=== PATIENT | male | born 1960 | race Caucasian/White ===

== ENCOUNTER 2023-02-21 18:06 | Emergency (ER) | payer OTHER, SELFPAY ==
--- NOTE | ~2023-02-21 | CT_ITS ---
EXAMINATION: CT ABDOMEN AND PELVIS WITHOUT CONTRAST CLINICAL INFORMATION: Abdominal pain and diarrhea COMPARISON: None available. TECHNIQUE: Multidetector volumetric imaging was performed from the superior aspect of the liver through the pubic symphysis. Sagittal and coronal reformatted images were obtained on the technologist's workstation. This CT examination was performed using dose optimization techniques as appropriate, variously including the following: *Automated exposure control *Adjustment of mA and/or kV according to patient size (this includes techniques or standardized protocols for targeted exams where dose is matched to indication/reason for exam; i.e. extremities or head) *Use of iterative reconstruction technique DLP: 611 mGy-cm FINDINGS: LUNG BASES: The lung bases are clear. The heart size is normal. LIVER, GALLBLADDER, AND BILIARY TREE: The liver is normal in size, shape, and attenuation. No focal hepatic lesion or biliary ductal dilatation is present. The gallbladder has been surgically removed. PANCREAS: Unremarkable. SPLEEN: Several fine calcifications are seen likely granulomas. The spleen is otherwise unremarkable. ADRENAL GLANDS: Unremarkable. KIDNEYS AND URETERS: The kidneys are normal in size, shape, and attenuation. No hydronephrosis, hydroureter, or calculi seen. Mild bilateral perinephric stranding. BLADDER: Mild bladder wall thickening is seen however the bladder is undistended. GASTROINTESTINAL TRACT: There is moderate scattered stool seen throughout the colon without significant distention. The small bowel loops are normal caliber. Appendix is normal. No free air or inflammatory process seen. ABDOMINAL WALL: No significant hernia is appreciated. LYMPH NODES: There are small shotty lymph nodes seen in the retroperitoneum. VASCULAR: The distal abdominal aorta is mildly dilated measuring 2.5 x 2.5 cm. PELVIC VISCERA: No free fluid or free air seen. The prostate gland is normal size with central gland calcification. OSSEOUS STRUCTURES: There is vacuum disc phenomena lower dorsal spine and L3-for L4-L5 disc level. No aggressive lytic or sclerotic process seen. CT/CT abdomen pelvis wo IV con IMPRESSION: No acute intra-abdominal process seen. Moderate constipation without obstruction. Normal appendix. Mild dilated distal abdominal aorta. No radiopaque urolith or hydroureteronephrosis. Fleischner guidelines were followed.
[2023-02-21 18:37] VITALS: BP 148/73; PULSE 110; RESP 18; TEMP 36.7; O2SAT 98; BMI 35.3
--- NOTE | 2023-02-21 18:38 | ED_ITS ---
HPI - Abdominal Pain General Chief Complaint: Abdominal Pain <BG Russell - Last Filed: 02/21/23 18:42> Stated Complaint: abd pain <BG Russell - Last Filed: 02/21/23 18:42> Time Seen by Provider: 02/21/23 21:45 <BG Russell - Last Filed: 02/21/23 18:42> Source: patient <Mily Hernandez MD - Last Filed: 02/21/23 22:29> Mode of arrival: ambulatory <Mily Hernandez MD - Last Filed: 02/21/23 22:29> Limitations: no limitations <Mily Hernandez MD - Last Filed: 02/21/23 22:29> History of Present Illness HPI narrative: Patient comes to the emergency room complaining of bilateral lower quadrant pain for 2 days. Patient reports diarrhea UTI symptoms. No fever chills. <Mily Hernandez MD - Last Filed: 02/21/23 22:29> Related Data Home Medications: Previous Rx's Medication Instructions Recorded hyoscyamine sulfate 0.125 mg tablet 0.125 mg PO QID #14 tabs 02/21/23 tramadol 50 mg tablet 50 mg PO BID PRN pain #4 tabs 02/21/23 <BG Russell - Last Filed: 02/21/23 18:42> Allergies/Adverse Reactions: Allergies Allergy/AdvReac Type Severity Reaction Status Date / Time No Known Allergies Allergy Verified 02/21/23 18:41 <BG Russell - Last Filed: 02/21/23 18:42> Review of Systems Review of Systems Constitutional : No Weight loss, No Fever, No Chills, No Night Sweats, No Fatigue, No Malaise ENT/Mouth : No Hearing loss, No Ear Pain, No Nasal Congestion, No Sinus Pain, No Hoarseness, No sore throat, No Rhinorrhea, No Swallowing Difficulty Eyes: No Eye Pain, No Swelling, No Redness, No Foreign Body, No Discharge, No Vision Changes Cardiovascular : No Chest Pain, No SOB, No Dyspnea on Exertion, No Orthopnea, No Edema, No Palpitations Respiratory : No Cough, No Sputum, No Wheezing, No Smoke Exposure, No Dyspnea Gastrointestinal : Complaining of bilateral lower quadrant pain Genitourinary : no irregular bleeding, No Dysuria, No Urinary Frequency, No Hematuria, No Urinary Incontinence, No Urgency, No Flank Pain, No Urinary Flow Changes, No Hesitancy Musculoskeletal : No joint pain, No Myalgias, No Joint Swelling Skin : No Skin Lesions, No rash Neuro : No Weakness, No Numbness, No Paresthesias, No Loss of Consciousness, No Dizziness, No Headache Psych : No Anxiety/Panic, No Depression, No SI/HI/AH/VH, No Social Issues, Heme/Lymph: No Bruising, No Bleeding,No Lymphadenopathy Endocrine : No Polyuria, No Polydipsia, No Temperature Intolerance <Mily Hernandez MD - Last Filed: 02/21/23 22:29> FOR[facility]LY [facility], [facility] Social History Social History: Social History Advance Directives: No Advance Directives Information Provided: No <BG Russell - Last Filed: 02/21/23 18:42> Physical Exam ED Vital Signs: Vital Signs - 24 hr 02/21/23 18:37 02/21/23 20:56 Temperature 98.0 F 97.0 F Pulse Rate 110 H 97 Respiratory Rate 18 18 Blood Pressure 148/73 H 134/81 Pulse Oximetry 98 94 Oxygen Delivery Method Room Air Room Air BMI result Body Mass Index 35.3 <BG Russell - Last Filed: 02/21/23 18:42> Vital Signs - 24 hr 02/21/23 18:37 02/21/23 20:56 Temperature 98.0 F 97.0 F Pulse Rate 110 H 97 Respiratory Rate 18 18 Blood Pressure 148/73 H 134/81 Pulse Oximetry 98 94 Oxygen Delivery Method Room Air Room Air BMI result Body Mass Index 35.3 <Mily Hernandez MD - Last Filed: 02/21/23 22:29> Const Other: Appearance: Alert. Oriented X3. No acute distress. Well-appearing Eyes: Pupils equal, round and reactive to light. ENT: Pharynx normal. Neck: Normal inspection. Neck supple. No lymph nodes noted. No crepitus CVS: Normal heart rate and rhythm. Pulses normal. Normal S1 and S2 Respiratory: No respiratory distress. Breath sounds normal. No Wheezing. No rales Abdomen: Soft and nontender. No rigidity. No distention. No guarding, no rebound Skin: Skin warm and dry. Normal skin color. Normal skin turgor. Extremities: No lower extremity edema. No Lacerations. No Rash Neuro: Oriented X 3. No motor deficit. No sensory deficit. Moving all extremities. No slurred speech. CN 2 through 12 grossly intact Psych: calm, cooperative, normal affect <Mily Hernandez MD - Last Filed: 02/21/23 22:29> Course Course Course Narrative: RME - 62yo male with history of diverticulitis and polyps presenting for bilateral flank pain and suprapubic pain that started 2 days ago and has been increasing. Denies vomiting, endorses mucousy diarrhea and urinary urgency and feeling like he is not fully voiding. Plan: labs, CT abd <BG Russell - Last Filed: 02/21/23 18:42> Medical Decision Making Medical Decision Making MDM Narrative: I discussed the labs with the patient, white blood cell count within normal limits, chemistry unremarkable. CT scan my interpretation, no acute findings. Urinalysis negative for UTI. Patient's abdominal discomfort likely secondary to a viral illness. <Mily Hernandez MD - Last Filed: 02/21/23 22:29> Differential Diagnosis Differential Diagnoses: The differential diagnosis associated with the presentation includes (Viral illness, gastroenteritis, colitis, appendicitis, diverticulitis) <Mily Hernandez MD - Last Filed: 02/21/23 22:29> Lab Data MDM Lab Attestation statement: I reviewed the patient's lab results. <Mily Hernandez MD - Last Filed: 02/21/23 22:29> Result Diagrams: 02/21/23 18:57 02/21/23 18:57 <BG Russell - Last Filed: 02/21/23 18:42> Labs: Lab Results 02/21/23 02/21/23 02/21/23 Range/Units 18:57 18:57 18:57 WBC 7.1 (4.8-10.8) X10*3/uL RBC 4.83 (4.60-5.80) X10*6/uL Hgb 15.4 (14.0-18.0) g/dl Hct 45.7 (42.0-52.0) % MCV 94.6 (80.0-98.0) fL MCH 31.9 (27.0-33.0) pg MCHC 33.7 (31.0-36.0) g/dl RDW 13.2 (11.0-16.0) % Plt Count 185 (160-400) X10*3/uL MPV 9.5 (9.4-12.4) fL Immature Gran % (Auto) 0.1 (0.0-0.4) % Neut % (Auto) 60.8 (45-73) % Lymph % (Auto) 24.2 (20-40) % Trigg % (Auto) 9.0 (2-11) % Eos % (Auto) 5.1 H (0-4) % Baso % (Auto) 0.8 (0-2) % Lymph # (Auto) 1.7 (1.2-4.9) X10*3/uL Trigg # (Auto) 0.6 (0.1-1.2) X10*3/uL Eos # (Auto) 0.4 (0.0-0.4) X10*3/uL Baso # (Auto) 0.1 (0.0-0.2) X10*3/uL Abs Immat Gran (auto) 0.01 (0.00-0.03) X10*3/uL Absolute Neuts (auto) 4.3 (2.0-8.3) x10*3/uL Absolute Nucleated RBC 0.000 (0.0-0.012) X10*3/uL Nucleated RBC % (auto) 0.0 (0.0-0.2) /100WBC Sodium 141 (135-145) mmol/L Potassium 3.9 (3.3-5.1) mmol/L Chloride 106 (96-108) mmol/L Carbon Dioxide 28 (22-29) mmol/L Anion Gap 11 L (12-20) BUN 16 (9-16) mg/dL Creatinine 1.01 (0.5-1.4) mg/dL Estim Creat Clear Calc 72.6 Estimated GFR > 60 Random Glucose 105 (60-115) mg/dL Calcium 9.1 (8.4-10.2) mg/dL Magnesium 2.1 (1.6-2.6) mg/dL Total Bilirubin 0.8 (0.0-1.0) mg/dL Direct Bilirubin 0.3 (0.0-0.5) mg/dL AST 19 (5-37) U/L ALT 20 (0-40) U/L Alkaline Phosphatase 88 (39-117) U/L Total Protein 6.8 (6.5-8.0) g/dL Albumin 4.4 (3.5-5.0) g/dL Lipase 17 (8-78) U/L Urine Color Dark Yellow Urine Appearance Clear Urine pH 6.0 (5.0-9.0) Ur Specific [place] >= 1.030 H (1.005-1.025) Urine Protein Trace (Neg-Trace) mg/dL Urine Glucose (UA) Negative (Negative) mg/dL Urine Ketones Trace (Negative) mg/dL Urine Blood Negative (Negative) Urine Nitrite Negative (Negative) Ur Leukocyte Esterase Negative (Negative) <BG Russell - Last Filed: 02/21/23 18:42> Lab Results 02/21/23 02/21/23 02/21/23 Range/Units 18:57 18:57 18:57 WBC 7.1 (4.8-10.8) X10*3/uL RBC 4.83 (4.60-5.80) X10*6/uL Hgb 15.4 (14.0-18.0) g/dl Hct 45.7 (42.0-52.0) % MCV 94.6 (80.0-98.0) fL MCH 31.9 (27.0-33.0) pg MCHC 33.7 (31.0-36.0) g/dl RDW 13.2 (11.0-16.0) % Plt Count 185 (160-400) X10*3/uL MPV 9.5 (9.4-12.4) fL Immature Gran % (Auto) 0.1 (0.0-0.4) % Neut % (Auto) 60.8 (45-73) % Lymph % (Auto) 24.2 (20-40) % Trigg % (Auto) 9.0 (2-11) % Eos % (Auto) 5.1 H (0-4) % Baso % (Auto) 0.8 (0-2) % Lymph # (Auto) 1.7 (1.2-4.9) X10*3/uL Trigg # (Auto) 0.6 (0.1-1.2) X10*3/uL Eos # (Auto) 0.4 (0.0-0.4) X10*3/uL Baso # (Auto) 0.1 (0.0-0.2) X10*3/uL Abs Immat Gran (auto) 0.01 (0.00-0.03) X10*3/uL Absolute Neuts (auto) 4.3 (2.0-8.3) x10*3/uL Absolute Nucleated RBC 0.000 (0.0-0.012) X10*3/uL Nucleated RBC % (auto) 0.0 (0.0-0.2) /100WBC Sodium 141 (135-145) mmol/L Potassium 3.9 (3.3-5.1) mmol/L Chloride 106 (96-108) mmol/L Carbon Dioxide 28 (22-29) mmol/L Anion Gap 11 L (12-20) BUN 16 (9-16) mg/dL Creatinine 1.01 (0.5-1.4) mg/dL Estim Creat Clear Calc 72.6 Estimated GFR > 60 Random Glucose 105 (60-115) mg/dL Calcium 9.1 (8.4-10.2) mg/dL Magnesium 2.1 (1.6-2.6) mg/dL Total Bilirubin 0.8 (0.0-1.0) mg/dL Direct Bilirubin 0.3 (0.0-0.5) mg/dL AST 19 (5-37) U/L ALT 20 (0-40) U/L Alkaline Phosphatase 88 (39-117) U/L Total Protein 6.8 (6.5-8.0) g/dL Albumin 4.4 (3.5-5.0) g/dL Lipase 17 (8-78) U/L Urine Color Dark Yellow Urine Appearance Clear Urine pH 6.0 (5.0-9.0) Ur Specific [place] >= 1.030 H (1.005-1.025) Urine Protein Trace (Neg-Trace) mg/dL Urine Glucose (UA) Negative (Negative) mg/dL Urine Ketones Trace (Negative) mg/dL Urine Blood Negative (Negative) Urine Nitrite Negative (Negative) Ur Leukocyte Esterase Negative (Negative) <Mily Hernandez MD - Last Filed: 02/21/23 22:29> Radiology Impression Discussion of test interpretation with radiology: I have reviewed the radiologist's reading. <Mily Hernandez MD - Last Filed: 02/21/23 22:29> Radiologist Impression: FINDINGS: LUNG BASES: The lung bases are clear. The heart size is normal.? LIVER, GALLBLADDER, AND BILIARY TREE: The liver is normal in size, shape, and attenuation. No focal hepatic lesion or biliary ductal dilatation is present. The gallbladder has been surgically removed.? PANCREAS: Unremarkable.? SPLEEN: Several fine calcifications are seen likely granulomas. The spleen is otherwise unremarkable.? ADRENAL GLANDS: Unremarkable.? KIDNEYS AND URETERS: The kidneys are normal in size, shape, and attenuation. No hydronephrosis, hydroureter, or calculi seen. Mild bilateral perinephric stranding. ? BLADDER: Mild bladder wall thickening is seen however the bladder is undistended.? GASTROINTESTINAL TRACT: There is moderate scattered stool seen throughout the colon without significant distention. The small bowel loops are normal caliber. Appendix is normal. No free air or inflammatory process seen.? ABDOMINAL WALL: No significant hernia is appreciated.? LYMPH NODES: There are small shotty lymph nodes seen in the retroperitoneum. VASCULAR: The distal abdominal aorta is mildly dilated measuring 2.5 x 2.5 cm. PELVIC VISCERA: No free fluid or free air seen. The prostate gland is normal size with central gland calcification.? OSSEOUS STRUCTURES: There is vacuum disc phenomena lower dorsal spine and L3-for L4-L5 disc level. No aggressive lytic or sclerotic process seen.? CT/CT abdomen pelvis wo IV con IMPRESSION: No acute intra-abdominal process seen. ? Moderate constipation without obstruction. Normal appendix. ? Mild dilated distal abdominal aorta. ? No radiopaque urolith or hydroureteronephrosis. ? <Mily Hernandez MD - Last Filed: 02/21/23 22:29> Discharge Plan Discharge Clinical Impression: Abdominal pain <BG Russell - Last Filed: 02/21/23 18:42> Patient Disposition: Home, Self-Care <BG Russell - Last Filed: 02/21/23 18:42> Instructions: Abdominal Pain (ED) <BG Russell - Last Filed: 02/21/23 18:42> Additional Instructions: Please follow-up with your primary care physician tomorrow. If you have any worsening or new symptoms, please return to the emergency room or call 911 <BG Russell - Last Filed: 02/21/23 18:42> Prescriptions: New hyoscyamine sulfate 0.125 mg tablet 0.125 mg PO QID Qty: 14 0RF tramadol 50 mg tablet 50 mg PO BID PRN (Reason: pain) Qty: 4 0RF <BG Russell - Last Filed: 02/21/23 18:42>
[2023-02-21 19:02] LABS: MANUAL DIFF FLAG NO
[2023-02-21 19:03] LABS: Basophils Absolute Auto 0.1 X10*3/uL (0.0-0.2); Basophils Percent Auto 0.8 % (0-2); Eosinophils Absolute Auto 0.4 X10*3/uL (0.0-0.4); Eosinophils Percent Auto 5.1 % (0-4); Hematocrit 45.7 % (42.0-52.0); Hemoglobin 15.4 g/dl (14.0-18.0); Imm Gran Abs Auto 0.01 X10*3/uL (0.00-0.03); Imm Gran Pct Auto 0.1 % (0.0-0.4); Lymphocytes Absolute Auto 1.7 X10*3/uL (1.2-4.9); Lymphocytes Percent Auto 24.2 % (20-40); Mean Corpuscular HGB Conc 33.7 g/dl (31.0-36.0); Mean Corpuscular Hemoglobin 31.9 pg (27.0-33.0); Mean Corpuscular Volume 94.6 fL (80.0-98.0); Mean Platelet Volume 9.5 fL (9.4-12.4); Monocytes Absolute Auto 0.6 X10*3/uL (0.1-1.2); Neutrophils Absolute Auto 4.3 x10*3/uL (2.0-8.3); Neutrophils Percent Auto 60.8 % (45-73); Platelet Count 185 X10*3/uL (160-400); Red Blood Count 4.83 X10*6/uL (4.60-5.80); Red Cell Distribution Width 13.2 % (11.0-16.0); White Blood Count 7.1 X10*3/uL (4.8-10.8)
[2023-02-21 19:04] LABS: Appearance Urine Clear; Color Urine Dark Yellow; Glucose Urine UA Negative (Negative); Leukocyte Esterase Urine Negative (Negative); Nitrite Urine Negative (Negative); Specific Gravity - Urine >= 1.030 (1.005-1.025); Urine Blood Negative (Negative); Urine Ketones Trace mg/dL (Negative); Urine Protein Trace mg/dL (Neg-Trace)
[2023-02-21 19:17] LABS: Alanine Aminotransferase 20 U/L (0-40); Albumin Level 4.4 g/dL (3.5-5.0); Alkaline Phosphatase 88 U/L (39-117); Anion Gap 11 (12-20); Aspartate Amino Transferase 19 U/L (5-37); Bilirubin Direct 0.3 mg/dL (0.0-0.5); Bilirubin Total 0.8 mg/dL (0.0-1.0); Blood Urea Nitrogen 16 mg/dL (9-16); Calcium 9.1 mg/dL (8.4-10.2); Carbon Dioxide 28 mmol/L (22-29); Chloride 106 mmol/L (96-108); Creatinine Clr Calc Pharmacy 72.6; Estimated Glomerular Filt Rate > 60; Glucose Random 105 mg/dL (60-115); Lipase 17 U/L (8-78); Magnesium 2.1 mg/dL (1.6-2.6); Potassium 3.9 mmol/L (3.3-5.1); Sodium 141 mmol/L (135-145); Total Protein 6.8 g/dL (6.5-8.0)
[2023-02-21 20:56] VITALS: BP 134/81; PULSE 97; RESP 18; TEMP 36.1; O2SAT 94
[2023-02-21] MEDS: PHENobarb/Hyoscy/Atropine/Scop 10 ML ELIXIR 5 ML PO (22:24)
--- NOTE | 2023-02-21 22:31 | PC.NURSE ---
pt medicated per jan for 04/16 abdominal pain
== END 2023-02-21 22:35 | disposition home or self-care (01) ==
PROVIDERS: Physician Assistant; Emergency Provider Emergency Medicine
DX: R10.30 Lower abdominal pain, unspecified (principal); K59.00 Constipation, unspecified
CPT/HCPCS: 36415; 74176; 80048; 80076; 81003; 83690; 83735; 85025; 99284